=== PATIENT | female | born 1995 | race African-American/Black ===

== ENCOUNTER 2016-11-04 08:47 | Emergency (ER) | payer OTHER ==
[2016-11-04] MEDS ORDERED: Ketorolac Tromethamine 30 MG/ML VIAL ONE (09:23)
--- NOTE | 2016-11-04 09:37 | RAD ---
CHEST 2 VIEWS: Date: 11/04/16 HISTORY: Chest pain. FINDINGS: Heart size and mediastinum are within normal limits. The lungs are clear of infiltrates. No bony fin dings. IMPRESSION: No active intrathoracic disease. POS: OFF
[2016-11-04 09:58] LABS: Troponin I Less than 0.010 ng/mL (< 0.028)
== END 2016-11-04 10:50 | disposition home or self-care (01) ==
LOC: NAV ERS 08:47
DX: M94.0 Chondrocostal junction syndrome [Tietze] (principal); J45.909 Unspecified asthma, uncomplicated
CPT/HCPCS: 36415; 71020; 82553; 84484; 85379; 93005; 96374; J1885

== ENCOUNTER 2017-03-15 14:13 | Emergency (ER) | payer OTHER ==
[2017-03-15] MEDS ORDERED: Sodium Chloride 0.9% 1,000 ML ONE (15:28)
[2017-03-15 15:55] LABS: #Basophils 0.1 thou/uL (0.0-0.2); #Eosinphils 0.2 thou/uL (0.0-0.7); #Lymphocytes 1.1 thou/uL (1.20-3.40); #Monocytes 0.4 thou/uL (0.11-0.59); %Basophils 1.5 % (0.0-1.0); %Eosinophils 3.3 % (0.0-10.0); %Lymphocytes 23.5 % (21.0-51.0); %Monocytes 8.9 % (0.0-10.0); %Neutrophils 62.8 % (42.0-75.0); Hemoglobin 11.2 g/dL (12.0-16.0); Mean Corpuscular HGB CONC 29.9 g/dL (32.0-36.0); Mean Corpuscular Hemoglobin 23.9 pg (27.0-31.0); Mean Platelet Volume 9.5 fL (7.4-10.4); Platelet Count 140 thou/uL (130-400); Red Blood Cell (RBC) Count 4.67 mill/uL (4.20-5.40); White Blood Cell (WBC) Count 4.7 thou/uL (4.8-10.8)
[2017-03-15 16:09] LABS: Bilirubin Negative (Negative); Blood, Urine Trace (Negative); Clarity Clear (Clear); Glucose, Urine (Dipstick) Negative (Negative); Leukocyte Small (Negative); Nitrite Negative (Negative); Protein, Urine (Dipstick) Negative (Neg-Trace); Urobilinogen 0.2 mg/dL (0.2-1.0)
[2017-03-15 16:12] LABS: Pregnancy Test - Urine (BHCG) Negative (NEGATIVE); Pregu Control Background? CLEAR/WHITE (CLR/WHITE); Pregu Control Bar Appear? YES (CONTROL BAR)
[2017-03-15 16:18] LABS: RBC/HPF 0-3 HPF (0-3); WBC/HPF 0-3 HPF (0-3)
[2017-03-15 16:29] LABS: ALT (SGPT) 15 U/L (8-55); AST (SGOT) 20 U/L (5-34); Albumin 4.2 g/dL (3.5-5.0); Alkaline Phosphatase 61 U/L (40-150); Anion Gap 14 mmol/L (10-20); BUN (Urea Nitrogen) 14 mg/dL (7.0-18.7); Bilirubin, Total 0.2 mg/dL (0.2-1.2); Calc. Creatinine Clearance 0 mL/min (70-130); Calcium 9.7 mg/dL (7.8-10.44); Carbon Dioxide 23 mmol/L (22-29); Chloride 107 mmol/L (98-107); Estimated GFR-MDRD Greater than 90; Globulin 3.5 g/dL (2.4-3.5); Glucose 88 mg/dL (70-105); Potassium 4.1 mmol/L (3.5-5.1); Protein, Total 7.7 g/dL (6.0-8.3); Sodium 140 mmol/L (136-145)
== END 2017-03-15 16:51 | disposition home or self-care (01) ==
LOC: NAV ERS 14:13
DX: K52.9 Noninfective gastroenteritis and colitis, unspecified (principal); K21.9 Gastro-esophageal reflux disease without esophagitis; J45.909 Unspecified asthma, uncomplicated
CPT/HCPCS: 80053; 81003; 81015; 81025; 85025; 96360; J7050

== ENCOUNTER 2017-04-30 18:35 | Emergency (ER) | payer OTHER, SELFPAY ==
[2017-04-30] MEDS ORDERED: Ibuprofen 200 MG TAB ONE (18:58)
--- NOTE | 2017-04-30 19:17 | RAD ---
EXAM FOUR VIEWS LEFT KNEE 04/30/17 HISTORY: Pain. Symptoms x1 week. COMPARISON: None. FINDINGS: Joint space is preserved. No fracture. No malalignment. No joint effusion. IMPRESSION: Unremarkable four views left knee. POS: [facility]USA
== END 2017-04-30 19:25 | disposition home or self-care (01) ==
LOC: NAV ERS 18:35
DX: M25.562 Pain in left knee (principal); J45.909 Unspecified asthma, uncomplicated; Z79.899 Other long term (current) drug therapy

== ENCOUNTER 2017-05-04 15:07 | Emergency (ER) | payer SELFPAY ==
[2017-05-04] MEDS ORDERED: Acetaminophen 500 MG TAB ONE (15:37)
--- NOTE | 2017-05-04 16:19 | CT ---
CT HEAD NONCONTRAST HISTORY: Dizziness and head spinning after trauma. FINDINGS: There is no evidence of acute intracranial hemorrhage or infarct. The ventricles appear normal in s ize, shape, and position. There is no mass effect or shift in midline structures. Visualized paran shahid sinuses remain well-aerated. IMPRESSION: No acute intracranial abnormalities are demonstrated. POS: [facility]USA
--- NOTE | 2017-05-04 16:21 | CT ---
CERVICAL SPINE CT NONCONTRAST INDICATION: Fall, neck injury, pain, trauma. FINDINGS: Cervical spinal alignment is maintained. No compression fracture. Craniocervical junction is intact . No acute fracture visualized. IMPRESSION: No acute osseous abnormality of the cervical spine. POS: NARAYAN
== END 2017-05-04 17:00 | disposition home or self-care (01) ==
LOC: NAV ERS 15:07
DX: S09.90XA Unspecified injury of head, initial encounter (principal); S13.4XXA Sprain of ligaments of cervical spine, initial encounter; J45.909 Unspecified asthma, uncomplicated; W20.8XXA Other cause of strike by thrown, projected or falling object, initial encounter
CPT/HCPCS: 70450; 72125

== ENCOUNTER 2017-09-24 11:19 | Emergency (ER) | payer SELFPAY ==
[2017-09-24] MEDS ORDERED: Sodium Chloride 0.9% 1,000 ML ONE (11:41)
[2017-09-24] MEDS ORDERED: Ondansetron HCl/PF 4 MG/2 ML Vial ONE (11:41)
[2017-09-24 12:05] LABS: Pregnancy Test - Urine (BHCG) Negative (Negative); Pregu Control Background? CLEAR/WHITE (CLR/WHITE); Pregu Control Bar Appear? YES (CONTROL BAR); Specific Gravity 1.032 (1.002-1.036)
== END 2017-09-24 13:05 | disposition home or self-care (01) ==
LOC: NAV ERS 11:19
DX: K52.9 Noninfective gastroenteritis and colitis, unspecified (principal); J45.909 Unspecified asthma, uncomplicated; D50.0 Iron deficiency anemia secondary to blood loss (chronic); Z79.899 Other long term (current) drug therapy
CPT/HCPCS: 81025; 96361; 96374; J2405; J7050

== ENCOUNTER 2019-04-15 11:27 | Emergency (ER) | payer SELFPAY | END 2019-04-15 12:10 | disposition home or self-care (01) | LOC: NAV ERS 11:27 | DX: S60.445A External constriction of left ring finger, initial encounter (principal); D50.9 Iron deficiency anemia, unspecified; W49.04XA Ring or other jewelry causing external constriction, initial encounter | CPT/HCPCS: 99283 ==

== ENCOUNTER 2020-02-26 13:13 | Emergency (ER) | payer OTHER, SELFPAY ==
[2020-02-27 11:57] LABS: SARS-CoV-2 MS2 Positive; SARS-CoV-2 N Gene Negative; SARS-CoV-2 S Gene Negative; SARS-CoV-2 orf1ab Negative
== END 2020-02-26 14:00 | disposition home or self-care (01) ==
LOC: NAV ERS 13:13
DX: R50.9 Fever, unspecified (principal); Z20.828 Contact with and (suspected) exposure to other viral communicable diseases; J45.909 Unspecified asthma, uncomplicated
CPT/HCPCS: 87635; 99283; U0003

== ENCOUNTER 2020-03-30 13:22 | Emergency (ER) | payer BC, OTHER ==
[2020-03-31 14:39] LABS: SARS-CoV-2 MS2 Positive; SARS-CoV-2 N Gene Negative; SARS-CoV-2 S Gene Negative; SARS-CoV-2 orf1ab Negative
== END 2020-03-30 15:15 | disposition home or self-care (01) ==
LOC: NAV ERS 13:22
DX: Z20.828 Contact with and (suspected) exposure to other viral communicable diseases (principal); F31.9 Bipolar disorder, unspecified
CPT/HCPCS: 87635; 99283; U0003

== ENCOUNTER 2020-04-21 16:28 | Emergency (ER) | payer BC | END 2020-04-21 17:10 | disposition home or self-care (01) | LOC: NAV ERS 16:28 | DX: S39.012A Strain of muscle, fascia and tendon of lower back, initial encounter (principal); S16.1XXA Strain of muscle, fascia and tendon at neck level, initial encounter; J45.909 Unspecified asthma, uncomplicated; D50.9 Iron deficiency anemia, unspecified; F31.9 Bipolar disorder, unspecified; V43.92XA Unspecified car occupant injured in collision with other type car in traffic accident, initial encounter | CPT/HCPCS: 99283 ==

== ENCOUNTER 2020-06-21 10:20 | Emergency (ER) | payer BC, SELFPAY | END 2020-06-21 11:20 | disposition home or self-care (01) | LOC: NAV ERS 10:20 | DX: J02.9 Acute pharyngitis, unspecified (principal); F31.9 Bipolar disorder, unspecified; J45.909 Unspecified asthma, uncomplicated; Z79.899 Other long term (current) drug therapy | CPT/HCPCS: 87081; 87430 ==

== ENCOUNTER 2022-07-29 18:36 | Emergency (ER) | payer OTHER, SELFPAY | END 2022-07-29 20:35 | disposition home or self-care (01) | LOC: NAV ERS 18:36 | DX: B34.9 Viral infection, unspecified (principal); J45.909 Unspecified asthma, uncomplicated; F17.290 Nicotine dependence, other tobacco product, uncomplicated | CPT/HCPCS: 87804; 87807; 99283 ==

== ENCOUNTER 2023-09-01 13:26 | Emergency (ER) | payer MEDICAID, SELFPAY ==
[2023-09-01] MEDS ORDERED: Sodium Chloride 0.9% 1,000 ML ONE (14:06)
[2023-09-01] MEDS ORDERED: Ibuprofen 200 MG TAB ONE (14:06)
[2023-09-01 14:42] LABS: #Basophils 0.1 thou/uL (0.0-0.2); #Eosinphils 0.1 thou/uL (0.0-0.7); #Lymphocytes 0.7 thou/uL (1.20-3.40); #Monocytes 0.5 thou/uL (0.11-0.59); %Basophils 1.7 % (0.0-1.0); %Eosinophils 1.7 % (0.0-10.0); %Lymphocytes 21.7 % (21.0-51.0); %Monocytes 15.5 % (0.0-10.0); %Neutrophils 59.5 % (42.0-75.0); Hematocrit 26.6 % (36.0-47.0); Hemoglobin 7.7 g/dL (12.0-16.0); Mean Corpuscular HGB CONC 28.8 g/dL (32.0-36.0); Mean Platelet Volume 8.9 fL (7.4-10.4); Platelet Count 248 10x3/uL (130-400); Red Blood Cell (RBC) Count 4.03 mill/uL (4.20-5.40); White Blood Cell (WBC) Count 3.4 10x3/uL (4.8-10.8)
[2023-09-01 14:50] LABS: ALT (SGPT) 10 U/L (8-55); AST (SGOT) 20 U/L (5-34); Albumin 4.6 g/dL (3.5-5.0); Alkaline Phosphatase 51 U/L (40-110); Anion Gap 13 mmol/L (10-20); BUN (Urea Nitrogen) 7 mg/dL (7.0-18.7); Bilirubin, Total 0.4 mg/dL (0.2-1.2); Calc. Creatinine Clearance 0 mL/min (70-130); Calcium 9.8 mg/dL (7.8-10.44); Carbon Dioxide 22 mmol/L (22-29); Chloride 100 mmol/L (98-107); Estimated GFR 96; Globulin 3.8 g/dL (2.4-3.5); Glucose 81 mg/dL (70-105); Potassium 3.3 mmol/L (3.5-5.1); Protein, Total 8.4 g/dL (6.0-8.3); Sodium 132 mmol/L (136-145)
[2023-09-01 15:08] LABS: Bacteria/HPF 1+ HPF (None Seen); Bilirubin Negative (Negative); Blood, Urine Negative (Negative); CAUTI Indications for Culture Fever or rigors; Clarity Clear (Clear); Glucose, Urine (Dipstick) Negative (Negative); Ketone, Urine Negative (Negative); Leukocyte Moderate (Negative); Nitrite Negative (Negative); Protein, Urine (Dipstick) Negative (Neg-Trace); RBC/HPF None Seen HPF (0-3); Squamous Epithelial 0-3 HPF (0-3); Urobilinogen 0.2 mg/dL (Less than 2); WBC/HPF 0-3 HPF (0-3)
[2023-09-01 15:09] LABS: Urine Culture Reflex No No
[2023-09-01] MEDS ORDERED: cefTRIAXone (ROCEPHIN) 2 GM VIAL ONE (15:19)
[2023-09-01] MEDS ORDERED: Sodium Chloride 0.9% 100 ML ONE (15:19)
[2023-09-01 15:22] LABS: Pregnancy Test - Urine (BHCG) Negative (Negative); Pregu Control Background? CLEAR/WHITE (CLR/WHITE); Pregu Control Bar Appear? YES (CONTROL BAR)
== END 2023-09-01 16:45 | disposition home or self-care (01) ==
LOC: NAV ERS 13:26
DX: D64.9 Anemia, unspecified (principal); N39.0 Urinary tract infection, site not specified; B34.9 Viral infection, unspecified; F17.290 Nicotine dependence, other tobacco product, uncomplicated
CPT/HCPCS: 36415; 71046; 80053; 81001; 81025; 83605; 85025; 87040; 87804; 87807; 96361; 96365; J0696; J3490; J7050